=== PATIENT | male | born 1960 | race Caucasian/White ===

== ENCOUNTER 2017-03-14 17:04 | Observation (INO) | payer BC ==
[2017-03-14] MEDS ORDERED: ONDANSETRON HCL 4 MG/2 ML VIAL ONE (17:37)
[2017-03-14 18:30] LABS: BASOPHIL# 0.1 X 10^3uL (0.0-0.1); EOSINOPHILS 1.5 % (0.0-6.0); EOSINOPHILS# 0.1 X 10^3uL (0.0-0.4); HEMATOCRIT 42.3 % (42.0-54.0); HEMOGLOBIN 14.8 g/dL (14.0-18.0); LYMPHOCYTES 17.2 % (20.0-40.0); LYMPHOCYTES# 1.5 X 10^3uL (0.8-3.8); MEAN CELL VOLUME 96.2 fL (80.0-100.0); MEAN CORPUS. HGB CONCENTRATION 34.9 g/dL (32.0-36.0); MEAN CORPUSCULAR HEMOGLOBIN 33.6 pg (29.0-35.0); MEAN PLATELET VOLUME 7.4 fL (7.4-10.4); MONOCYTES 6.4 % (2.0-10.0); MONOCYTES# 0.5 X 10^3uL (0.2-1.0); NEUTROPHILS 73.9 % (54.0-75.0); NEUTROPHILS# 6.3 X 10^3uL (2.6-6.7); PLATELET COUNT 241 X 10^3uL (130-440); RED CELL DISTRIBUTION WIDTH 12.3 % (11.5-14.5); WHITE BLOOD COUNT 8.5 X 10^3uL (3.9-10.7)
[2017-03-14 18:35] LABS: ALBUMIN 4.7 g/dL (3.5-5.0); ALKALINE PHOSPHATASE 71 U/L (38-126); ALT 48 U/L (21-72); AST 68 U/L (17-59); BILIRUBIN, DIRECT 0.3 mg/dL (0.0-0.4); BLOOD UREA NITROGEN 17 mg/dL (9-20); CALCIUM 9.2 mg/dL (8.4-10.2); CHLORIDE 91 mmol/L (98-107); EST GLOMERULAR FILTRATION RATE > 60 mL/min; GLUCOSE 103 mg/dL (70-100); LIPASE 256 U/L (23-300); SODIUM 129 mmol/L (137-145); TOTAL PROTEIN 7.8 g/dL (6.3-8.2)
[2017-03-14] MEDS ORDERED: ONDANSETRON HCL 4 MG/2 ML VIAL IV PRN (19:57)
[2017-03-14] MEDS ORDERED: HOME MEDICATION LIST NEEDED 1 EA EACH MISC ONE (19:57)
[2017-03-14] MEDS ORDERED: NORMAL SALINE 1,000 ML IV SCH (20:00)
--- NOTE | 2017-03-14 20:28 | ER PHYSICIAN DOCUMENTATION ---
Physician Documentation [facility] Name:Osman Casillas Age:56 yrs Sex:Male :1960 Arrival Date:03/14/2017 Time:17:04 Bed3 Private MD: Chester Jaime Disposition: 03/14/17 19:52 Admit ordered for Yelena Mosquera. Preliminary diagnosis are Dyspnea, Dehydration, Hyponatremia. - Bed requested for Medical/Surgical. - Condition is Fair. - Problem is new. - Symptoms have improved. 23 HR OBS Yes HPI: 03/14 17:50 This 56 yrs old Male presents to ER via Private Vehicle with complaints of jm Nausea/Vomiting. 17:50 The patient presents to the emergency department with nausea, with vomiting, without jm any complaints of abdominal pain. Onset: The symptom(s)/episode began/occurred today. Possible causes: travel, altitude . Associated signs and symptoms: Pertinent positives: shortness of breath. Severity of symptoms: in the emergency department the symptoms have improved mildly. The patient has not experienced similar symptoms in the past. The patient has not recently seen a physician. Pt came from [place] yesterday and felt fine. Today he woke up and was very SOB all day, worse when he lays down. Pt also w vomiting, abd distention, chills, and weakness. . Historical: - Allergies: No known drug Allergies; - Home Meds: 1. propranolol 20 mg oral tab 1 tab Daily 2. lisinopril 10 mg oral tab 1 tab once daily 3. gabapentin 100 mg oral tab 4. Prilosec 20 mg oral cpDR 1 cap once daily 5. Claritin 10 mg oral tab 6. multivitamin oral cap - PMHx: Hypertension; GERD; Allergic rhinits; peripheral neuropathy; - PSHx: LUMBAR SPINE SURGERY; temporal artery biopsy; - Tetanus: < 10 years. - Ebola Screening: : Patient negative for fever greater than or equal to 101.5 degrees Fahrenheit, and additional compatible Ebola Virus Disease symptoms. Patient denies exposure to infectious person. Patient denies travel to an Ebola-affected area in the 21 days before illness onset. . - Immunization history: Pneumococcal vaccine is up to date, Flu Vaccine < 1 year. - Social history: Smoking status: Patient states was never smoker of tobacco. Patient uses alcohol occasionally. ROS: 18:18 Constitutional: Positive for chills, fatigue, malaise. jm 18:18 ENT: Negative for sinus congestion, sinus pain. 18:18 Cardiovascular: Negative for chest pain. 18:18 Respiratory: Positive for dyspnea on exertion, shortness of breath. 18:18 Respiratory: Positive for orthopnea. 18:18 Abdomen/GI: Negative for abdominal pain, nausea, vomiting, diarrhea. 18:18 Back: Negative for pain with movement, radiated pain. 18:18 MS/extremity: Negative for swelling, tenderness. 18:18 Skin: Negative for rash, swelling. 18:18 Neuro: Positive for dizziness, weakness, Negative for headache. Exam: 18:36 Constitutional: The patient appears alert, awake, comfortable. 18:36 Eyes: Periorbital structures: appear normal, Conjunctiva: normal. 18:36 ENT: Mouth: is normal, Voice: is normal. 18:36 Chest/axilla: Inspection: normal, Palpation: is normal. 18:36 Cardiovascular: Rate: normal, Rhythm: regular. 18:36 Respiratory: Respirations: normal, Breath sounds: are normal. 18:36 Abdomen/GI: Inspection: distension, that is mild, in the abdomen diffusely, Bowel sounds: normal, Palpation: abdomen is soft and non-tender. 18:36 Back: pain, is absent, CVA tenderness, is absent. 18:36 Musculoskeletal/extremity: DVT Exam: No signs of deep vein thrombosis. Calves: are non-tender, have equal circumference. 18:36 Skin: Appearance: Color: pink, no rash present. 18:36 Neuro: Mentation: is normal, Memory: is normal. 18:36 Psych: Behavior/mood is pleasant, cooperative, Affect is calm. Vital Signs: 17:20 BP 165 / 102; Pulse 96; Resp 22; Temp 98.9(O); Pulse Ox 93% on R/A; Weight 96.16 kg; lp Height 5 ft. 10 in. (177.80 cm); Pain 2/10; 19:38 BP 171 / 95; Pulse 89; Pulse Ox 100% on 2 lpm NC; Pain 3/10; mk2 20:07 BP 156 / 86; mk2 17:20 Body Mass Index 30.42 (96.16 kg, 177.80 cm) lp MDM: 17:09 Patient medically screened. 18:37 Differential diagnosis: viral gastroenteritis, pulmonary edema. ED course: . 18:49 Data reviewed: vital signs, nurses notes, old medical records, lab test result(s), EKG, radiologic studies. Test interpretation: by ED physician or midlevel provider: plain radiologic studies, ECG. Counseling: I had a detailed discussion with the patient and/or guardian regarding: the historical points, exam findings, and any diagnostic results supporting the discharge/admit diagnosis, lab results, radiology results. ECG:. 19:49 Data reviewed: and as a result, I will admit patient. Physician consultation: Yelena Mosquera MD was called at 19:51, was contacted at 19:51, regarding admission, patient's condition. 03/14 18:35 Order name: CBC AUTO DIF, MDIF/RMOR IF IND; Complete Time: 18:48 EDTN 03/14 18:36 Order name: BASIC METABOLIC PANEL; Complete Time: 18:48 [facility] 03/14 18:36 Order name: HEPATIC PANEL; Complete Time: 18:48 [facility] 03/14 18:36 Order name: LIPASE; Complete Time: 18:48 EDTN 03/14 21:58 Order name: DDIMER; Complete Time: 22:03 [facility] 03/14 22:03 Interpretation: Abnormal. reagan 03/15 06:26 Order name: BASIC METABOLIC PANEL [facility] 03/15 06:27 Order name: CBC AUTO DIF, MDIF/RMOR IF IND [facility] 03/15 12:43 Order name: CHEST; SINGLE VIEW [id number] [facility] / 03:03 Order name: CAT SCAN; CHEST W/CON [id number] [facility] 03/14 17:26 Order name: NPO; Complete Time: 17:28 03/14 17:26 Order name: 12-lead EKG; Complete Time: 17:28 03/14 17:29 Order name: Oxygen; Complete Time: 17:29 mk2 EC:49 Rhythm is regular, Sinus tachycardia. QRS [place] is Normal. IA interval is normal. QRS jm interval is normal. QT interval is normal. No Q waves. T waves are Normal. No ST changes noted. Dispensed Medications: 17:28 Drug: Zofran 4 mg; Route: IVP; Infused Over: 2 mins; Site: left antecubital; lp 17:55 Follow up: Response: Nausea is decreased lp 18:02 CANCELLED (Physician Discretion): NS 0.9% 1000 ml IV at bolus once mk2 19:56 Drug: NS 0.9% 1000 ml; Route: IV; Rate: 250 ml/hr; Site: left antecubital; mk2 20:27 Follow up: IV Status: Infusion continued upon admission mk2 Point of Care Testing: Urine Dip: 19:26 pH: 5.5; ; Specific [place]: 1.005; Ketones: Small; Glucose: Negative; Protein: em1 Negative; Leukocytes: Negative; Nitrite: Negative ; Blood: Negative; Bilirubin: Negative ; Urobilinogen: Normal Signatures: Peggy Carlos, Chester Le RN, lp, MD MD sc Meyer, John, MD MD jm Kruger, Meg, CAROL RN 2
--- NOTE | 2017-03-14 20:28 | ER NURSING DOCUMENTATION ---
Nurse's Notes [facility] Name:Osman Casillas Age:56 yrs Sex:Male :1960 Arrival Date:03/14/2017 Time:17:04 Bed3 Private MD: Diagnosis:Dyspnea;Dehydration;Hyponatremia Presentation: 03/14 17:15 Presenting complaint: Patient states: dyspnea, nausea, and chills. Transition of care: lp Home. 17:15 Acuity: NITHYA 3 lp 17:15 Method Of Arrival: Private Vehicle lp Triage Assessment: 17:18 General: Appears uncomfortable, Behavior is anxious. Pain: Denies pain. EENT: No lp deficits noted. Neuro: Level of Consciousness is awake, alert, Oriented to person, place, time, event, Anime Designer are equal bilaterally Moves all extremities. Cardiovascular: Capillary refill < 3 seconds Heart tones S1 S2. Respiratory: Breath sounds are clear bilaterally. Reports shortness of breath. GI: Reports nausea, vomiting. : No deficits noted. Derm: Skin is diaphoretic, Skin is pink. Historical: - Allergies: No known drug Allergies; - Home Meds: 1. propranolol 20 mg oral tab 1 tab Daily 2. lisinopril 10 mg oral tab 1 tab once daily 3. gabapentin 100 mg oral tab 4. Prilosec 20 mg oral cpDR 1 cap once daily 5. Claritin 10 mg oral tab 6. multivitamin oral cap - PMHx: Hypertension; GERD; Allergic rhinits; peripheral neuropathy; - PSHx: LUMBAR SPINE SURGERY; temporal artery biopsy; - Tetanus: < 10 years. - Ebola Screening: : Patient negative for fever greater than or equal to 101.5 degrees Fahrenheit, and additional compatible Ebola Virus Disease symptoms. Patient denies exposure to infectious person. Patient denies travel to an Ebola-affected area in the 21 days before illness onset. . - Immunization history: Pneumococcal vaccine is up to date, Flu Vaccine < 1 year. - Social history: Smoking status: Patient states was never smoker of tobacco. Patient uses alcohol occasionally. Screenin:22 Infectious Disease Risk None. Abuse screen: Denies threats or abuse. Denies injuries lp from another. Nutritional screening: No deficits noted. Assessment: 17:22 See Triage Assessment done by same RN. GI: Abdomen is distended. lp Vital Signs: 17:20 BP 165 / 102; Pulse 96; Resp 22; Temp 98.9(O); Pulse Ox 93% on R/A; Weight 96.16 kg; lp Height 5 ft. 10 in. (177.80 cm); Pain 2/10; 19:38 BP 171 / 95; Pulse 89; Pulse Ox 100% on 2 lpm NC; Pain 3/10; mk2 20:07 BP 156 / 86; mk2 17:20 Body Mass Index 30.42 (96.16 kg, 177.80 cm) lp ED Course: 17:05 Patient arrived in ED. cj 17:14 Joshua Ingram MD is Attending Physician. jm 17:15 Peggy Carlos, RN is Primary Nurse. lp 17:16 Triage completed. lp 17:[address] Ingram notified. lp 17:22 Valuables Patient has correct armband on for positive identification. Placed in gown. lp Bed in low position. Call light in reach. Cardiac Monitoring On for Nurse Monitoring only. Pulse Ox - RN Monitoring Only NIBP On - RN Monitoring Only. 17:23 EKG done. (by ED staff). mk2 17:28 Inserted peripheral IV: 20 gauge in left antecubital area and blood collected. Oxygen mk2 Oxygen administration via nasal cannula @ 2L/min. 18:49 Report received from Peggy. Warm blanket given. mk2 19:13 Attending Physician role handed off by Joshua Ingram MD de 19:13 Chester Dickson MD is Attending Physician. de 19:25 Urine collected. em1 19:51 Yelena Mosquera MD is Admitting Physician. sc 20:22 Report given to HAROON Bonilla 2 Administered Medications: 17:28 Drug: Zofran 4 mg; Route: IVP; Infused Over: 2 mins; Site: left antecubital; lp 17:55 Follow up: Response: Nausea is decreased lp 18:02 CANCELLED (Physician Discretion): NS 0.9% 1000 ml IV at bolus once mk2 19:56 Drug: NS 0.9% 1000 ml; Route: IV; Rate: 250 ml/hr; Site: left antecubital; mk2 20:27 Follow up: IV Status: Infusion continued upon admission mk2 Point of Care Testing: Urine Dip: 19:26 pH: 5.5; ; Specific [place]: 1.005; Ketones: Small; Glucose: Negative; Protein: em1 Negative; Leukocytes: Negative; Nitrite: Negative ; Blood: Negative; Bilirubin: Negative ; Urobilinogen: Normal Outcome: 19:52 Decision to Admit by Provider. de 20:23 Admitted to Med/surg accompanied by nurse. mk2 20:23 Condition: stable 20:23 Discharge Assessment: Lung bases are diminished, upper lobes CTA. Pt is alert and oriented. In no respiratory distress when at rest but feels very sob when walking or with movement. 20:23 Instructed on need to admit Dr. Dickson discussed pt condition with pt and family. 20:27 Patient left the ED. mk2 Signatures: Peggy Carlos, RN Chester Le lp, MD MD sc Meyer, John, MD MD jm Kruger, Meg, RN RN mk2 [facility], [facility] em1 Oneida Mcgill
[2017-03-14] MEDS: NORMAL SALINE 1,000 ML IV SCH (22:20)
[2017-03-14] MEDS ORDERED: ENOXAPARIN SODIUM 40 MG/0.4 ML SYR SUBCUT ONE (22:27)
[2017-03-15] MEDS: NORMAL SALINE 1,000 ML IV SCH (05:25)
[2017-03-15 06:17] LABS: BLOOD UREA NITROGEN 14 mg/dL (9-20); CALCIUM 8.4 mg/dL (8.4-10.2); CHLORIDE 98 mmol/L (98-107); EST GLOMERULAR FILTRATION RATE > 60 mL/min; GLUCOSE 93 mg/dL (70-100); POTASSIUM 4.5 mmol/L (3.5-5.1); SODIUM 135 mmol/L (137-145)
[2017-03-15 06:18] LABS: BASOPHIL# 0.1 X 10^3uL (0.0-0.1); BASOPHILS 1.1 % (0.0-2.0); EOSINOPHILS# 0.1 X 10^3uL (0.0-0.4); HEMATOCRIT 38.4 % (42.0-54.0); HEMOGLOBIN 12.9 g/dL (14.0-18.0); LYMPHOCYTES 17.1 % (20.0-40.0); LYMPHOCYTES# 1.1 X 10^3uL (0.8-3.8); MEAN CORPUS. HGB CONCENTRATION 33.5 g/dL (32.0-36.0); MEAN CORPUSCULAR HEMOGLOBIN 32.8 pg (29.0-35.0); MEAN PLATELET VOLUME 6.9 fL (7.4-10.4); MONOCYTES 10.4 % (2.0-10.0); MONOCYTES# 0.7 X 10^3uL (0.2-1.0); NEUTROPHILS 69.4 % (54.0-75.0); NEUTROPHILS# 4.5 X 10^3uL (2.6-6.7); PLATELET COUNT 189 X 10^3uL (130-440); RED BLOOD COUNT 3.92 X 10^6uL (4.20-6.10); RED CELL DISTRIBUTION WIDTH 12.1 % (11.5-14.5); WHITE BLOOD COUNT 6.5 X 10^3uL (3.9-10.7)
[2017-03-15 06:21] VITALS: BP 142/73; PULSE 86; TEMP 97.9
--- NOTE | 2017-03-15 07:23 | HISTORY & PHYSICAL ---
DATE OF ADMISSION: 03/14/17 ATTENDING PHYSICIAN: Yelena Mosquera MD HISTORY OF PRESENT ILLNESS: This 56-year-old gentleman is visiting from [place]. He felt fine on arrival yesterday, but awakened this morning gasping for air. He is not sure why. He does not have a history of sleep apnea. His says that he does snore sometimes at home. He continued to feel uncomfortable throughout the day. He was extremely short of breath with any exertion. He had some nausea and vomiting on several occasions today and was not able to eat or drink normally. He felt that he was having some chills, although he had no respiratory illness symptoms leading up to this day. His abdomen also felt distended and full to him. PAST MEDICAL HISTORY 1. Chronic back pain with neuropathy both feet. 2. Prediabetes. 3. History of retinal tear. 4. History of hypertension. 5. Hyperlipidemia. 6. Essential tremor. PAST SURGICAL HISTORY 1. He has had surgery on his back and anticipates surgery on his neck. 2. Cataract surgery bilaterally. 3. Biopsy of his left temporal artery which was negative for giant cell arteritis. MEDICATIONS Lisinopril. Propranolol. Gabapentin. *He is uncertain of the dosing but he already took these this morning. ALLERGIES: No known drug allergies. SOCIAL HISTORY: He does not smoke. He does drink very significantly, 3 or 4 glasses of wine a night, sometimes more, but he states that he can easily go a night without alcohol and not have symptoms. He is here with his and 9-year -old son. FAMILY HISTORY: Sister with colon polyps. He himself is up to date on colonoscopy. Mom had Parkinsons disease. His father of emphysema related to his smoking. LABORATORY DATA: From the Emergency Room includes a normal CBC with no leukocytosis. Chemistry is remarkable for a sodium of 129, potassium of 5, chloride of 91. Carbon dioxide of 20. BUN and creatinine are normal. His glucose is 103 and AST is slightly elevated at 68. Other LFTs are fine. IMAGING: A CT of the chest apparently showed some nodular findings that require follow up by CT and elevated right hemidiaphragm but no pneumonia or obvious pulmonary edema to explain his shortness of breath. There was some edema noted of the bowel as well. These studies are not yet in the chart, this is by report from the Emergency Room physicians at this point. PHYSICAL EXAMINATION VITAL SIGNS: He is afebrile. His blood pressure has tended to be a little high 159/94 on arrival to the floor. His pulse is 87. His respirations are normal. He is 95% on 3 liters of oxygen. He is not dyspneic. He speaks in long sentences. He appears very comfortable. HEENT: Unremarkable. CARDIAC: Distant S1, S2, slightly elevated heart rate in the 90s. His chest is clear to auscultation, perhaps a bit diminished on the right, but there are no rales or wheezes. ABDOMEN: Obese, soft and nontender. It does appear slightly distended. EXTREMITIES: Without edema. There is no sign of deep vein thrombosis. Negative Homans sign. ASSESSMENT AND PLAN 1. Dyspnea rather suddenly appearing this morning. This is either just a reaction to being at altitude (as a heavy gentleman who is from very low altitude) or it is related to a slightly abnormal CT of the chest. The official reading should be available by morning, and we can consider if there is anything else that needs treatment at this time. It sounds more like he will need further workup when he arrives home. I do believe that altitude is probably the best explanation for his shortness of breath, nausea and vomiting and some degree of headache. Altho' Ddimer is elevated, CT does not suggest PE. Lovenox has been ordered for tonight. 2. Abdominal complaints. These are mild diffuse. He is having no problems with nausea at this time. He is trying some jello. I do not see that there is any treatable process here. 3. Chronic medical issues to include hypertension and neuropathic pain. We do not know the doses of his medications, but he already had them this morning and likely will be safe for discharge in the a.m. 4. Significant alcohol intake and desire to lose weight. We did discuss that his prediabetes, hypertension, problems with his back and potential future health problems related to his alcohol intake would be best served by decreasing his number of drinks per week and controlling his calorie intake. He seems fairly motivated. At this point, I do not see any signs of withdrawal and during this short stay it is unlikely to arise, but will stay attentive to it. NAVA
--- NOTE | 2017-03-15 07:58 | DC SUMMARY: IM Note ---
Discharge Summary: IM/Peds Provider: Date of Admission: 03/14/17 Admitting Provider: ADAN MUNGUIA MD Attending Provider: ADAN MUNGUIA MD Discharging Provider: ADAN MUNGUIA MD Primary Care Provider: Discharge Date: 03/15/17 - Diagnosis (1) Hypoxia Status: Suspected (2) Hyponatremia Status: Resolved Hospital Course: Pt was admitted with fairly classic symptoms of altitude sickness; headache, nausea, emesis, low sodium and low oxygen levels (borderline, but I suspect was worse during sleep; pt is overweight and not from this altitude). With oxygen, IV saline, his sodium is nearly normal, he feels great, he is eating and drinking again, and he is ready for discharge. He will not spend the night again at this altitude unless he is able to lose significant amount of weight, and there is no guarantee that will work either. He has some findings on his CT chest which warrant follow up with his doc at home and repeat CT in future, but nothing crucial at this time. - Time Spent with Patient Total time spent providing and/or coordinating discharge services: Discharge - Patient/Caregiver Discharge Instructions Activity Level: Take it easy until you get back to your own altitude, then increase as tolerated. Diet: Smaller portions, one alcohol drink daily, and you will lose weight easily ! Follow up: Other,PCP [ACTIVE (Staff Physician)] - 7 Days Overall discharge status: patient is progressing back to baseline Disposition: HOME, SELF-CARE Discharge Summary Data - Medication History Medication History: Inpatient Medications 03/14/17 21:23 Normal Saline [Sodium Chloride 0.9% 1000 ml] 1,000 ml IV CONT 03/15/17 21:00 Enoxaparin Sodium [Lovenox] 40 mg SUBCUT DAILY@2100 Procedures and tests throughout hospitalization: Completed Lab Orders 03/14/17 21:32 DDIMER [HEM] Urgent Pending Orders 03/14/17 21:23 Normal Saline [Sodium Chloride 0.9% 1000 ml] 1,000 ml IV CONT 03/15/17 21:00 Enoxaparin Sodium [Lovenox] 40 mg SUBCUT DAILY@2100 Labs on day of discharge: Labs from last 24 hours 03/15/17 03/14/17 06:00 21:32 WBC 6.5 RBC 3.92 L Hgb 12.9 L Hct 38.4 L MCV 98.0 MCH 32.8 MCHC 33.5 RDW 12.1 Plt Count 189 MPV 6.9 L Neutrophils % 69.4 Lymphocytes % 17.1 L Eosinophils % 2.0 Basophils % 1.1 Neutrophils # 4.5 Lymphocytes # 1.1 Monocytes 10.4 H Monocytes # 0.7 Eosinophils # 0.1 Basophils # 0.1 D-Dimer 625 H* Sodium 135 L Potassium 4.5 Chloride 98 Carbon Dioxide 25 BUN 14 Creatinine 0.9 GFR Calculation > 60 Glucose 93 Calcium 8.4 IM: Discharge Physical Exam - I&O/Vital Signs I&O: Intake & Output 03/14/17 03/15/17 03/15/17 21:59 05:59 13:59 Intake Total 1126 Output Total 2100 Balance -974 Weight 95.254 kg Intake: IV 976 Left Antecubital 976 Oral 150 Output: Urine 2100 Other: Urine Appearance Clear Urine Color Yellow Voiding Method Urinal # Voids 3 Vital Signs: Last Vital Signs Temp 36.6 C 03/15/17 06:21 Pulse 86 03/15/17 06:21 Resp 16 03/15/17 06:21 BP 142/73 03/15/17 06:21 Pulse Ox 92 03/15/17 07:41 Oxygen Flow Rate 3 Oxygen Delivery Method Room Air - Constitutional General appearance: Present: obese - Eye Eye exam: Present: EOMI - ENT ENT exam: Present: mucous membranes moist - Respiratory Respiratory exam: Present: decreased breath sounds (R base), clear - Cardiovascular Cardiovascular exam: Present: RRR - GI/Abdominal GI/Abdominal exam: Present: soft - Extremities Exam Extremities exam: Absent: edema - Neurological Exam Neurological exam: Present: oriented X3 - Psychiatric Psychiatric exam: Present: normal affect
[2017-03-15 08:25] VITALS: RESP 18; O2SAT 90
--- NOTE | 2017-03-15 12:35 | RADIOLOGY REPORT ---
A limited single portable view of the chest, without prior films for comparison , demonstrates the heart and vessels to be unremarkable. The left lung field is clear. There is opacification of the lower third of the right hemithorax. Elevated diaphragm versus other. The right upper lung field is clear. No pneumothorax is seen. IMPRESSION: Nonspecific opacification at the right lung base. Please see CT scan report of the same date. MTDD
[2017-03-15] MEDS ORDERED: ENOXAPARIN SODIUM 40 MG/0.4 ML SYR SUBCUT SCH ×2 (21:00)
--- NOTE | 2017-03-16 03:02 | CT REPORT ---
HISTORY: Chest pain and cough COMPARISON: None. TECHNIQUE: This examination was performed using automated exposure control, adjustment of mA or kV according to patient size, and/or use of iterative reconstruction technique. Axial CT imaging from the thoracic i nlet through the upper abdomen following administration of IV contrast. Isovue 370 contrast. FINDINGS: There is a cluster of tree-in-bud nodules in the right upper lung zone, series 3 image 16-17, probabl y infectious or inflammatory. Please consider a follow up in 3-6 months to ensure resolution. There i s atelectasis in the right lower lobe due to asymmetric elevation the right hemidiaphragm. No consoli dation, effusion, or pneumothorax seen. Heart is normal. There are some calcified lymph nodes in the mediastinum. No pathologic adenopathy se en. No gross central pulmonary arterial filling defect observed. Aorta is normal. The liver appears low attenuation suggesting steatosis. There are granulomas throughout the spleen. H aziness of the mid abdominal mesentery is seen suggestive of mesenteric panniculitis. Upper abdominal structures appear otherwise grossly normal. The aorta is normal. Thoracic esophagus a ppears normal. There are degenerative changes of the thoracic spine of mild severity. There is no evidence of an acu te or aggressive osseous process. IMPRESSION: 1. Tree-in-bud nodularity the right upper lobe, favored to be a benign infectious or inflammatory pro cess. Consider a 3-6 month follow-up chest CT to ensure stability or resolution. 2. Otherwise no evidence of an acute process within the chest. 3. Evidence of old granulomatous disease. 4. Fatty liver. 5. Hazy mesenteric edema, nonspecific but favoring sequela of mesenteric panniculitis 6. Asymmetric elevation of the right hemidiaphragm resulting in subtotal passive atelectasis of the r ight lower lobe. Final Electronic Signature: This report was electronically signed by Mann Braswell MD on 03/14/2017 7:23 PM. emery /
== END 2017-03-15 07:58 | disposition home or self-care (01) ==
LOC: ER 17:04 → IN 20:14
PROVIDERS: ADMIT Family Medicine; ATTEND Family Medicine
DX: T70.20XA Unspecified effects of high altitude, initial encounter (principal); E87.1 Hypo-osmolality and hyponatremia; R09.02 Hypoxemia; M54.5 Low back pain; E78.5 Hyperlipidemia, unspecified; G25.0 Essential tremor; R73.03 Prediabetes; I10 Essential (primary) hypertension; Z79.899 Other long term (current) drug therapy
CPT/HCPCS: 36415; 71010; 71260; 80048; 80076; 83690; 85025; 85379; 93005; 96361; 96372; 96374; 96376; 99285; G0378; J1650; J2405; J7030